=== PATIENT | female | born 1960 | race Caucasian/White ===

== ENCOUNTER 2016-11-24 14:33 | Emergency (ER) | payer BC ==
[2016-11-24 15:18] VITALS: TEMP 97.4
[2016-11-24] MEDS ORDERED: SODIUM CHLORIDE 0.9% 1000ML 1,000 ML IV SCH (15:45)
[2016-11-24 16:45] VITALS: BP 121/70; PULSE 74; RESP 20; O2SAT 98
== END 2016-11-24 16:05 | disposition short-term general hospital (02) ==
LOC: ED 14:33
DX: K92.1 Melena (principal); Z98.890 Other specified postprocedural states
CPT/HCPCS: 80053; 85025; 85610; 85730; 99284

== ENCOUNTER 2016-11-26 08:39 | Emergency (ER) | payer BC ==
[2016-11-26 08:55] VITALS: RESP 19; TEMP 97.8
[2016-11-26 09:31] VITALS: BP 119/63; PULSE 78; O2SAT 99
== END 2016-11-26 09:45 | disposition short-term general hospital (02) ==
LOC: ED 08:39
DX: K92.2 Gastrointestinal hemorrhage, unspecified (principal)
CPT/HCPCS: 36415; 85018; 99282

== ENCOUNTER 2018-09-01 10:57 | Outpatient (CLI) | payer OTHER, BC ==
[2016-11-26 09:31] VITALS: O2SAT 99
== END 2018-09-01 10:58 | disposition home or self-care (01) | DRG 561 ==
LOC: RAD 10:57
PROVIDERS: ATTEND Orthopaedic Surgery
DX: S92.022D Displaced fracture of anterior process of left calcaneus, subsequent encounter for fracture with routine healing (principal); S92.215D Nondisplaced fracture of cuboid bone of left foot, subsequent encounter for fracture with routine healing
CPT/HCPCS: 73630

== ENCOUNTER 2018-09-29 09:57 | Outpatient (CLI) | payer OTHER, BC | END 2018-09-29 09:58 | disposition home or self-care (01) | LOC: CONVCARE 09:57 ==